=== PATIENT | male | born 1975 | race Caucasian/White ===

== ENCOUNTER 2019-04-27 06:00 | Day surgery (SDC) | payer BC ==
[~2019-04-27] VITALS: Ht 165.1 cm; Wt 77.1 kg
[2019-04-27] MEDS ORDERED: LR 1,000 ML IV SCH (09:16)
[2019-04-27] MEDS ORDERED: ONDANSETRON HCL 4 MG/2 ML VIAL IVP PRN (09:30)
[2019-04-27] MEDS ORDERED: METOCLOPRAMIDE HCL 10 MG/2 ML VIAL IVP PRN (09:30)
[2019-04-27] MEDS ORDERED: KETOROLAC TROMETHAMINE 30 MG VIAL IVP PRN (09:30)
[2019-04-27] MEDS ORDERED: MIDAZOLAM HCL 5 MG/5 ML VIAL IVP PRN (09:30)
[2019-04-27] MEDS ORDERED: ePHEDrine sulfate 50 MG/ML VIAL IVP PRN (09:30)
[2019-04-27] MEDS ORDERED: HYDROmorphone 1 MG INJ. 1 MG/ML AMPUL IVP PRN (09:30)
[2019-04-27] MEDS ORDERED: EPINEPHrine 1 MG/ML AMP ONE (10:23)
[2019-04-27] MEDS ORDERED: NEOSTIGMINE METHYLSULFATE 1 MG/ML, 10 ML VIAL ONE (10:23)
[2019-04-27] MEDS ORDERED: DEXAMETHASONE SOD PHOSPHATE 4 MG/ML VIAL ONE (10:23)
[2019-04-27] MEDS ORDERED: NS 1000 ML IV.SOLN IV ONE (10:23)
[2019-04-27] MEDS ORDERED: MIDAZOLAM HCL 5 MG/ML VIAL (VERSED) IV ONE (10:23)
[2019-04-27] MEDS ORDERED: PROPOFOL 200MG/ 20ML VIAL (DIPRIVAN) IV ONE (10:23)
[2019-04-27] MEDS ORDERED: LR 1,000 ML IV.SOLN IV ONE (10:23)
[2019-04-27] MEDS ORDERED: OXYMETAZOLINE HCL 0.05% NASAL SPRAY NS ONE (10:23)
[2019-04-27] MEDS ORDERED: GLYCOPYRROLATE 0.2 MG/ML VIAL ONE (10:23)
[2019-04-27] MEDS ORDERED: LIDOCAINE/EPI 1% 1:100000 20 ML VIAL INJ ONE (10:23)
[2019-04-27] MEDS ORDERED: MUPIROCIN 2% TOPICAL OINTMENT 22 GM ONE (10:23)
[2019-04-27] MEDS ORDERED: fentaNYL CITRATE/PF 100 MCG/2 ML AMP ONE (10:23)
[2019-04-27] MEDS ORDERED: NS IRRIG SOLN 1000 ML IR ONE (10:23)
[2019-04-27] MEDS ORDERED: ROCURONIUM BROMIDE 10 MG/ML (ZEMURON) ONE (10:23)
[2019-04-27] MEDS ORDERED: SEVOFLURANE 15 MIN GAS INH ONE (10:23)
[2019-04-27] MEDS ORDERED: WATER FOR IRRIGATION,STERILE 1,000 ML IRRIG.SOLN IR ONE (10:23)
[2019-04-27] MEDS: HYDROmorphone 1 MG INJ. 1 MG/ML AMPUL IVP PRN ×2 (10:48→10:58)
[2019-04-27] MEDS ORDERED: KETOROLAC TROMETHAMINE 30 MG VIAL ONE (10:50)
[2019-04-27] MEDS ORDERED: HYDROmorphone 1 MG INJ. 1 MG/ML AMPUL ONE (11:00)
[2019-04-27 11:41] VITALS: BP_SYST 114
[2019-04-27] MEDS ORDERED: HYDROcodone/ACETAMIN 5-325 MG TAB (NORCO/ VICODIN) PO ONE (12:15)
[2019-04-27] MEDS ORDERED: HYDROcodone/ACETAMIN 5-325 MG TAB (NORCO/ VICODIN) ONE (12:26)
== END 2019-04-27 13:45 | disposition home or self-care (01) ==
LOC: SMU 06:00 → SDS 06:00
PROVIDERS: ATTEND Otolaryngology
DX: J32.8 Other chronic sinusitis (principal); J34.89 Other specified disorders of nose and nasal sinuses; D38.5 Neoplasm of uncertain behavior of other respiratory organs; J34.2 Deviated nasal septum; G43.909 Migraine, unspecified, not intractable, without status migrainosus; G47.9 Sleep disorder, unspecified; J30.1 Allergic rhinitis due to pollen; Z88.0 Allergy status to penicillin
CPT/HCPCS: 30140; 30520; 31255; 31256; 31296; C1726; J0171; J1100; J1170; J1885; J2250; J2704; J2710; J3010; J3490; J7030; J7120

== ENCOUNTER 2019-04-28 18:59 | Emergency (ER) | payer BC ==
[~2019-04-28] VITALS: Ht 165.1 cm; Wt 77.1 kg
[2019-04-28 18:59] VITALS: BP_SYST 135
--- NOTE | 2019-04-28 18:59 | NUR ---
Placed in room 07. Placed on student services vice president, blood pressure machine and pulse oximeter. To gown for exam. Side rails up.
--- NOTE | 2019-04-28 19:02 | NUR ---
Pt AAOx4 ambulated into ED SOB and wet cough x today. Pt has hx of asthma and used inhaler with no relief. Denies n/v/d/chest pain. Skin pink dry and warm. No other injuries/complaints per pt/noted. Will continue to monitor.
--- NOTE | 2019-04-28 19:12 | NUR ---
ER Dr. Vazquez at bedside examining patient.
[2019-04-28] MEDS ORDERED: IPRATROPIUM/ALBUTEROL SULFATE 3 ML AMPUL.NEB (DUONEB) INH ONE (19:15)
[2019-04-28] MEDS ORDERED: KETOROLAC TROMETHAMINE 60 MG/2 ML VIAL IM ONE (19:45)
[2019-04-28 19:50] VITALS: BP_SYST 128
--- NOTE | 2019-04-28 19:50 | NUR ---
Patient given written and verbal discharge instructions and verbalizes understanding. ER MD discussed with patient the results and treatment provided. Patient in stable condition. ID arm band removed. Rx of Albuterol given. Patient educated on pain management and to follow up with PMD. Pain Scale 0. Opportunity for questions provided and answered. Medication side effect fact sheet provided.
== END 2019-04-28 19:50 | disposition home or self-care (01) ==
LOC: SED 18:59
DX: F41.9 Anxiety disorder, unspecified (principal); R06.02 Shortness of breath
CPT/HCPCS: 94640; 96372; 99283; J1885; J7620

== ENCOUNTER 2019-04-29 20:36 | Emergency (ER) | payer BC ==
--- NOTE | 2019-04-29 21:14 | NUR ---
Called pts name, not present to ER waiting room.
--- NOTE | 2019-04-29 21:30 | NUR ---
Pt name called a second time. Not present to ER waiting room.
--- NOTE | 2019-04-29 21:45 | NUR ---
Pt name called a third time. Not present to ER waiting room. LWBS.
== END 2019-04-29 21:14 | disposition left against medical advice (07) ==
LOC: SED 20:36
DX: R51 Headache (principal); Z53.21 Procedure and treatment not carried out due to patient leaving prior to being seen by health care provider

== ENCOUNTER 2019-04-30 04:39 | Emergency (ER) | payer BC ==
[~2019-04-30] VITALS: Ht 165.1 cm; Wt 77.1 kg
[2019-04-30 05:05] VITALS: BP_SYST 135
--- NOTE | 2019-04-30 05:21 | NUR ---
Pt placed to ER bed 02. Report given to IVIS Rivas.
--- NOTE | 2019-04-30 05:21 | NUR ---
Note cierra in ED - 04/30/19 at 0534 by LIDA Pt placed to bed 04. Report given to IVIS Rivas.
--- NOTE | 2019-04-30 05:26 | NUR ---
Dr. Alejo at bedside.
[2019-04-30] MEDS ORDERED: NACL 0.9% 1,000 ML IV ONE (05:34)
--- NOTE | 2019-04-30 05:37 | NUR ---
Pt presents to ER with c/o headache. Pt A&Ox4. Pt states Tuesday morning he had surgery for deviated septum by MD Singleton. 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 Pt states Tuesday, headache got much worse. Pt states since brain injury, pt has "massive panic attacks." Pt states head pain is 10/10 and describes head pain as "splitting migraine." Pt states double vision and sensitivity to lights. Pt states after surgery, he was prescribed Bactrim, Motrin 600 mg and [place] 5-325mg. Pt states he took last [place] at 9 pm yesterday. Pt states advil was taken at 0345 with no relief. Will continue to monitor.
[2019-04-30] MEDS ORDERED: METOCLOPRAMIDE HCL 10 MG/2 ML VIAL IVP ONE (05:45)
[2019-04-30] MEDS ORDERED: DIPHENHYDRAMINE INJ 50 MG/ML VIAL IVP ONE ×2 (05:45→06:45)
[2019-04-30] MEDS ORDERED: fentaNYL CITRATE/PF 100 MCG/2 ML AMP IVP ONE ×2 (06:45→07:30)
--- NOTE | 2019-04-30 07:40 | NUR ---
Administered Fentanyl 25mcg IVP as ordered by Dr. Alejo. Patient tolerated the medication well. See eMAR for details.
[2019-04-30 07:43] VITALS: BP_SYST 135
--- NOTE | 2019-04-30 07:44 | NUR ---
Patient given written and verbal discharge instructions and verbalizes understanding. ER MD discussed with patient the results and treatment provided. Patient in stable condition. ID arm band removed. IV catheter removed intact and dressing applied, no active bleeding. No Rx given. Patient educated on pain management and to follow up with PMD. Pain Scale 4/10. Opportunity for questions provided and answered. Medication side effect fact sheet provided.
== END 2019-04-30 07:44 | disposition home or self-care (01) ==
LOC: SED 04:39
DX: R51 Headache (principal); J45.909 Unspecified asthma, uncomplicated; Z98.890 Other specified postprocedural states
CPT/HCPCS: 88305; 88311; 96374; 96375; 96376; 99283; J1200; J2765; J3010; J7030